=== PATIENT | male | born 2005 | race Native Hawaiian/Other Pacific Islander ===

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

== ENCOUNTER 2024-04-14 16:13 | Emergency (ER) | payer SELFPAY ==
[2024-04-14 16:18] VITALS: BP 129/68; PULSE 66; RESP 18; TEMP 36.6; O2SAT 98; BMI 25.9
--- NOTE | 2024-04-14 16:44 | ED.GENADULT ---
HPI - General Adult General Chief complaint: General Medical Stated complaint: Vomiting 4 days Time Seen by Provider: 04/14/24 18:36 Source: patient Mode of arrival: ambulatory Limitations: no limitations History of Present Illness ED Provider: Gagan Alston HPI narrative: 18 yold male presents to the ED nasal congestion, sore throat, bodychaes, nausea, and vomitting. Patient denies any coughing, chest pain, and shortness of breath. patient states he work at [employer] and most of the kids were sick. Related Data Previous Rx's ?Medication ?Instructions ?Recorded loperamide 2 mg capsule 2 mg PO Q4H PRN loose stool #10 03/26/22 caps ondansetron 4 mg disintegrating 4 mg PO Q6H PRN nausea and 03/26/22 tablet vomiting #10 tabs famotidine 20 mg tablet (Pepcid) 20 mg PO BID 14 days #28 tabs 10/08/22 benzonatate 100 mg capsule 100 mg PO TID PRN cough #20 caps 10/14/22 cephalexin 500 mg capsule 500 mg PO QID 7 days #28 caps 04/09/23 miconazole nitrate 2 % topical 1 appl topical BID #14 grams 04/09/23 cream Allergies Allergy/AdvReac Type Severity Reaction Status Date / Time No Known Allergies Allergy Verified 04/14/24 16:19 [No Known Allergies*] Review of Systems Review of Systems: nasal congestion, sore throat, bodyaches, nausea, vomitting Yes all other systems are reviewed and are negative [facility] Social History Social History Advance Directives: No Advance Directives Information Provided: Yes Physical Exam ED Vital Signs: Vital Signs - 24 hr 04/14/24 16:18 04/14/24 19:06 Temperature 97.9 F 97.9 F Pulse Rate 66 66 Respiratory Rate 18 18 Blood Pressure 129/68 129/68 Pulse Oximetry 98 98 Oxygen Delivery Method Room Air Room Air BMI result Body Mass Index 25.9 Const General: cooperative, healthy appearing, comfortable, no acute distress, well developed, alert, awake and Physically active Orientation/consciousness: patient oriented x3 HENMT Head: Yes normal to inspection, Yes No palpable skull fracture present, Yes normocephalic, Yes atraumatic and No abrasion Ears: hearing grossly normal bilaterally, external ears normal, TM's normal bilaterally, TM normal on the right, TM normal on the left, EAC's normal, mastoids normal and no periauricular adenopathy Throat: Yes posterior oropharynx normal, Yes tonsils normal and Yes uvula midline Eyes General: appearance normal, both eyes and all related structures Neck Neck: Yes normal visual inspection, Yes full ROM, Yes no lymphadenopathy, Yes no meningeal signs, Yes trachea midline, Yes supple, No anterior neck swelling, No bilateral parotid enlargement and No lymphadenopathy Chest Chest palpation & inspection: normal inspection of the chest and normal palpation of entire chest wall Resp Effort & Inspection: normal respiratory effort and able to speak in complete sentences Cardio Jugular venous distension: no JVD Heart sounds: S1 normal heart sound present and S2 normal heart sound present GI Inspection: Yes normal to inspection Palpation (GI): Soft to palpation, not firm, nontender, no guarding and not rigid General: Yes no CVA tenderness Back/Spine/Pelvis Back: no CVA tenderness and No back tenderness Skin General skin exam: no rashes or lesions noted, elasticity normal and turgor normal Neuro General: patient oriented x3, gait normal, tone normal, moves all extremities, Normal light touch and pain sensation, no meningeal signs, no focal motor deficits and CN's II-XI intact bilaterally Extrem General: Yes normal to inspection, Yes full ROM and Yes capillary refill normal Psych Appearance: grossly normal, well kempt and not disheveled Course Course Course Narrative: RME: 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 Patient denies any chest pain or shortness of breath. SARs strep ordered. Medical Decision Making Medical Decision Making [facility] Narrative: 18-year-old male presents to ED for nasal congestion sore throat body aches nausea and vomiting. 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 Patient denies any coughing chest pain or shortness of breath. Patient's COVID influenza RSV strep came back negative. Patient well-appearing. Patient is safe for discharge. Not suspecting pneumonia. No indication for chest x-ray. Patient explained worrisome signs and informed to return to the ED immediately. Differential Diagnosis Differential Diagnoses: The differential diagnosis associated with the presentation includes (RSV, influenza, strep) Admission/Observation Consideration of admission/observation: Escalation of care including admission/observation considered Lab Data [facility] Lab Attestation statement: I reviewed the patient's lab results. Labs: Lab Results 04/14/24 Range/Units 17:37 Influenza Type A (PCR) NEGATIVE (Negative) Influenza Type B (PCR) NEGATIVE (Negative) RSV RNA Qual (PCR) NEGATIVE (Negative) SARS-CoV-2 RNA (RT-PCR) NEGATIVE (Negative) S. pyogenes GrpA [facility] Negative (Negative) Independent Historian Clinical information obtained from an independent historian. History obtained from or confirmed by: Other (patient) Discharge Plan Discharge Clinical Impression: URI (upper respiratory infection) Patient Disposition: Home, Self-Care Instructions: Upper Respiratory Infection (ED), Viral Syndrome (ED) Additional Instructions: You tested negative for COVID, influenza, RSV, and strep. Recommend follow-up with primary care provider. Return to the ED immediately for any chest pain, shortness of breath, coughing, coughing up blood, weakness, abdominal pain, intractable fever, dysuria, hematuria, flank pain, testicular pain, shortness of breath, neck pain, photophobia, headache, or any other concerning symptoms. Prescriptions: No Action ondansetron 4 mg tablet,disintegrating 4 mg PO Q6H PRN (Reason: nausea and vomiting) Qty: 10 0RF loperamide 2 mg capsule 2 mg PO Q4H PRN (Reason: loose stool) Qty: 10 0RF Rx Instructions: administer after each loose stool until symptoms controlled; do not exceed 8 mg per 24 hrs benzonatate 100 mg capsule 100 mg PO TID PRN (Reason: cough) Qty: 20 0RF cephalexin 500 mg capsule 500 mg PO QID 7 Days Qty: 28 0RF miconazole nitrate 2 % cream 1 appl topical BID Qty: 14 0RF famotidine [Pepcid] 20 mg tablet 20 mg PO BID 14 Days Qty: 28 0RF Stand Alone Forms: Work/School Release Interventions: ED Discharge Assessment Last Done: 04/14/24 19:06 Discharge Date/Time: 04/14/24 19:06 Print Language: Sami
[2024-04-14 17:52] LABS: IDNOW Serial# 58CA691E; Strep A Nucleic Acid Negative (Negative)
[2024-04-14 18:23] LABS: Influenza A PCR NEGATIVE (Negative); Influenza B PCR NEGATIVE (Negative); Resp Syncy Virus RNA Qual PCR NEGATIVE (Negative); SARS COV2 PCR INHOUSE NEGATIVE (Negative)
[2024-04-14 19:06] VITALS: BP 129/68; PULSE 66; RESP 18; TEMP 36.6; O2SAT 98
--- OUTSIDE RECORDS SUMMARY | 2024-04-14 19:50 | XMS_ITS | Clinical Summary ---
Author Organization [employer] Address [address] [facility] [address] [place] [address] Care Team Providers Care Compliance Representative Dealer Name Role Phone Chel Rossi EFRA Primary Care Provider [phone] Allergies No known active allergies Medications fluticasone (Flonase) 50 MCG/ACT nasal sprayIndication s:Acute maxillary sinusitis, recurrence not specified Administer 1 spray into each nostril 2 times daily. 16 g 1 4 Active albuterol 108 (90 Base) MCG/ACT inhalerIndicati ons:Difficulty breathing Inhale 2 puffs every 6 (six) hours if needed for wheezing. 18 g 11 4 01/01/20 25 Active busPIRone (Buspar) 5 MG tabletIndicatio ns:Anxiety Take 1 tablet (5 mg) by mouth 2 times daily for 3 days, THEN 2 tablets (10 mg) 2 times daily for 27 days. 115 tablet 4 Active hydrOXYzine HCl (Atarax) 25 MG tabletIndicatio ns:Anxiety TAKE 1 TABLET BY MOUTH EVERY 6 HOURS NEEDED FOR ANXIETY 120 tablet 4 Active Active Problems Problem Noted Date Diagnosed Date Annual physical exam 02/26/2024 Assessment & Plan (02/26/2024 6:28 PM EST): 18 y.o. male here for annual physical examination Reviewed BMI and BP with patient. Nutritional recommendations: Recommended to decrease soda and sugary beverage consumption. Recommended at least 20 g per meal of protein to assist with satiety. Exercise recommendations: Recommended at least 150 min/week of moderate intensity exercise. BH screen done and reviewed Care Gaps reviewed IZ reviewed and discussed w/ patient Updated/reviewed PMH, Surghx, Family Hx & Social Hx Acute maxillary sinusitis 07/07/2023 Assessment & Plan (02/26/2024 6:30 PM EST): Will send trial of nasal steroids, rtc if no improvement. Encounters Date Type Department Care Team Description 04/14/2024 Orders Only GENERIC EXTERNAL DATA DEPARTMENT Provider, Generic External Data 03/04/[address] [address] Chel Rossi NP No Show 03/01/[address] [address] Florencia Cuello MA chartprep 02/02/[address] [address] Chel Rossi NP Anxiety 01/20/2024 11:15 AM EST Telemedicine [address] [phone] Chel Rossi NP Anxiety (Primary Dx); Nasal congestion from Last 3 Months Immunizations Name Administration Dates Next Due DTaP 08/29/2008, 8,02/06/2005,10/23 DTaP, 5 pertussis antigens 2004 HPV 9-Valent 01/01/2016,12/29/2014 Hep A, ped/adol, 2 dose 05/30/2010,07/01/2005 Hep B, Adolescent or Pediatric 06/18/2006,2004,2004 HiB, unspecified 2004 Hib (PRP-T) 2004 IPV 08/29/2008, 5,2004,08/12 Influenza injectable quadriv alent preservative free 03/04/2016 Influenza, Split (incl. luís fied surface antigen) 03/29/2013,01/23/2012,12/26/2011 MMR 08/29/2008,07/01/2005 Meningococcal MCV4P ACYW-135 09/09/2021,01/01/20 16 Pneumococcal Conjugate PCV 13 09/01/2007 ,02/06/2005,2004,08/12 Tdap 01/01/2016 Varicella 08/29/2008,07/01/2005 Social History Tobacco Use Types Packs/Day Years Used Date Smoking Tobacco: Never Passive Smoke Exposure: Never Smokeless Tobacco: Never Tobacco Cessation:Counseling Given: Not Answered Alcohol Use Standard Drinks/Week Comments Never 0 (1 standard drink = 0.6 oz pur e alcohol) Alcohol Answer Date Recorded How often do you have a drink containing alcohol ? 0 01/01/2024 Average Number of Drinks Not on file 024 How often do you have six or more drinks on one occasion? 0 01/01/2024 Depression Answer Date Recorded Patient Health Questionnaire-9 Score 9 01/01/2024 Patient Health Questionnaire-9 Score 9 01/01/2024 Last PHQ-9: Questionnaire Data Not on file 1 03/02/2023 Housing Stability Answer Date Recorded What is your housing situation today? I have carissa carrasco 12/25/[address] you li ve. Do you have problems with any of the following? None of the above 12/25/2023 Food Insecurity Answer Date Recorded Within the past 12 months, y ou worried that your food would run out before you got money to buy more: Never True 12/25/2023 Within the past 12 months,th e food you bought just didn't last and you didn't have enough money to get more: Never True 09/2023 Transportation Answer Date Recorded In the past 12 months, has l ack of transportation kept you from medical appts, meetings, work or from getting things needed for daily living? No 12/25/2023 Utilities Answer Date Recorded In the past 12 months, has t he electric, gas, oil or water company threatened to shut off services in your home? No 12/25/2023 Depression Answer Date Recorded Patient Health Questionnaire-2 Score 1 01/01/2024 Internet Access Answer Date Recorded Internet Access Q1 Yes 12/25/2023 Internet Access Q2 Not on file 12/25/2023 Sex and Gender Information Value Date Recorded Sex Assigned at Male 12/16/2021 10:22 AM EDT Legal Sex Male 10:22 AM EDT Gender Identity Male 12/16/2021 10:22 AM EDT Sexual Orientation Straight 12/16/2021 10 :22 AM EDT Last Filed Vital Signs Vital Sign Reading Time Taken Comments Blood Pressure 125/75 01/01/2024 2:15 PM EST Pulse 92 01/01/2024 2:15 PM EST Temperature 36.8 ??C (98.2 ??F) 01/01/2024 2:15 PM ES T Respiratory Rate 20 01/01/2024 2:15 PM EST Oxygen Saturation 98% 01/01/2024 2:15 PM EST Inhaled Oxygen Concentration - - Weight 82.3 kg (181 lb 6.4 oz) 01/01/2024 2:15 P M EST Height 180.3 cm (5' 11 ) 01/01/2024 2:15 PM EST Body Mass Index 25.3 01/01/2024 2:15 PM EST Plan of Treatment Health Maintenance Due Date Last Done Comments Chlamydia and Gonorrhea Screening 2004 Dental Oral Exam 2004 Dental Prophylaxis 2004 Dental X-Ray: Bitewings 2004 Dental X-Ray: Full Mouth 2004 HIV Screening 2004 Fluoride Varnish 02/02/2005 Pneumococcal Vaccine: Pediatrics (0 to 5 Years) and At-Risk Patients (6 to 49) Years) (1 of 1 - PPSV23) 2010 09/01/2007, 02/06/2005, 2004, Additional history exists Family Planning (PISQ) 06/04/2019 Hepatitis C Screening 2022 COVID-19 Vaccine ( season) 2023 Influenza Vaccine (#1) 2023 7, 03/29/2013, 01/23/2012, Additional history exists Depression Monitoring (PHQ-9) 06/30/2024 01/01/2024, 01/01/2024 SDOH Screening 12/24/2024 12/25/2023 Alcohol/Substance Use Screening 12/31/2024 01/01/2024 Depression Screening 12/31/2024 01/01/2024, 01/01/20 24 Tobacco Screening 12/31/2024 01/01/2024 DTaP/Tdap/Td Vaccines (7 - Td or Tdap) 12/31/2025 01/01/2016, 08/29/2008, 09/01/2007, Additional history exists Zoster Vaccines (1 of 2) 2054 RSV Patients and Patients Aged 60 years or older (1 - 1-dose 75+ series) 06/04/2079 HIB Vaccines Aged Out 2004, 2004 No lo nger eligible based on patient's age to complete this topic Hepatitis B Vaccines Completed 06/18/2006, 2004, 2004 IPV Vaccines Completed 08/29/2008, 01/17, 2004, Additional history exists MMR Vaccines Completed 08/29/2008, 07/01/2005 Varicella Vaccines Completed 08/29/2008, 07/01/2005 Hepatitis A Vaccines Completed 05/30/2010, 07/02/19 06 HPV Vaccines Completed 01/01/2016, 12/29/2014 Meningococcal Vaccine Completed 09/09/2021, 016 RSV under 20 months Aged Out No longe r eligible based on patient's age to complete this topic Rotavirus Vaccines Aged Out No longer eligible based on patient's age to complete this topic Procedures Procedure Name Priority Date/Time Associated Diagnosis Comments SARS COV2/INFLUENZA A/B AND RSV RNA QL NAAT Routine 04/14/2024 5:37 PM EST STREP A NUCLEIC ACID Routine 04/14/2024 5:37 PM EST from Last 3 Months Results * Strep A Nucleic Acid (04/14/2024 5:37 PM EST) IDNOW SERIAL# [id number] [facility] Strep A Nucleic Acid Negative Negative [facility] Comment:All test results mus t be correlated with clinical findings.This test has not been evaluated for monitoring treatment ofinfection.Additional follow-up testing using the culture method isrequired if the result is negative and clinical symptomspersist, or in the event of an acute rheumatic feveroutbreak. 04/14/2024 5:37 PM EST 04/14/2024 5:42 PM EST us Generic External Data Provider LAB MICROBIOLOGY - GENERAL ORDERABLES Final Result [facility] [address] [place] [phone] * SARS-CoV-2 RNA, Influenza A/B, and RSV RNA, Ql NAAT (04/14/2024 5:37 PM EST) Influenza A PCR NEGATIVE Negative [facility] Influenza B PCR NEGATIVE Negative [facility] Resp Syncy Virus RNA Qual PCR NEGATIVE Negative [facility] SARS COV2 PCR NEGATIVE Negative [facility] Comment:All test results mus t be correlated with clinical findings.Negative results do not preclude SARS-CoV2, influenza Avirus, influenza B virus and/or RSV infectionand should not be used as the sole basis for treatment orother patient management decisions. Negative results must becombined with clinical observations, patient history, andepidemiological information.This test has not been evaluated for monitoring treatment ofinfection.This test has been authorized by the FDA under an EmergencyUse Authorization (EUA) for use by authorized laboratories.Testing performed on the [employer] GeneXpert utilizingreal-time RT-PCR.All SARS CoV2 and positive influenza A/B results arereported to [facility]. 04/14/2024 5:37 PM EST 04/14/2024 5:42 PM EST us Generic External Data Provider LAB MICROBIOLOGY - GENERAL ORDERABLES Final Result [facility] [address] [place] [phone] from Last 3 Months [facility] MEDICAID STAND CHILD Care Teams Compliance Representative Dealer Relationship Specialty Start Date End Date Chel Rossi NP [address] [place] [phone] PCP - General Family Medicine 08/18/23
--- OUTSIDE RECORDS SUMMARY | 2024-04-14 19:50 | XMS_ITS | Encounter Summary ---
Author Organization [employer] Address [address] [facility] [address] [place] [address] Care Team Providers Care Metal Bonder Name Role Phone Chel Rossi EFRA Primary Care Provider [phone] Encounter Details Date Type Department Care Team (Late st Contact Info) Description 04/14/2024 Orders Only GENERIC EXTERNAL DATA DEPARTMENT Provider, Generic External Data Social History Tobacco Use Types Packs/Day Years Used Date Smoking Tobacco: Never Passive Smoke Exposure: Never Smokeless Tobacco: Never Alcohol Use Standard Drinks/Week Comments Never 0 [...] Orientation Straight 12/16/2021 10 :22 AM EDT documented as of this encounter Plan of Treatment Not on file documented as of this encounter Procedures Procedure Name Priority Date/Time Associated Diagnosis Comments STREP A NUCLEIC ACID Routine 04/14/2024 5:37 PM EST SARS COV2/INFLUENZA A/B AND RSV RNA QL NAAT Routine 04/14/2024 5:37 PM EST documented in this encounter Results * SARS-CoV-2 RNA, Influenza A/B, and RSV RNA, Ql NAAT (04/14/2024 5:37 PM EST) Influenza A PCR NEGATIVE Negative [facility] Influenza B PCR NEGATIVE Negative [facility] Resp Syncy Virus RNA Qual PCR NEGATIVE Negative [facility] SARS COV2 PCR NEGATIVE Negative [facility] Comment:All test results mus t be [...] use by authorized laboratories.Testing performed on the [employer] GeneXpert utilizingreal-time RT-PCR.All SARS CoV2 and positive influenza A/B results arereported to [facility]. 04/14/2024 5:37 PM EST 04/14/2024 5:42 PM EST us Generic External Data Provider LAB MICROBIOLOGY - GENERAL ORDERABLES Final Result Performing Organization Address [facility] de Phone Number [facility] [address] [place] [phone] * Strep A Nucleic Acid (04/14/2024 5:37 PM EST) IDNOW SERIAL# [id number] [facility] Strep A Nucleic Acid Negative Negative [facility] Comment:All test results mus t be correlated with clinical findings.This test has not been evaluated for monitoring treatment ofinfection.Additional follow-up testing using the culture method isrequired if the result is negative and clinical symptomspersist, or in the event of an acute rheumatic feveroutbreak. 04/14/2024 5:37 PM EST 04/14/2024 5:42 PM EST Generic External Data Provider LAB MICROBIOLOGY - GENERAL ORDERABLES Final Result Performing Organization Address [facility] de Phone Number [facility] [address] [place] [phone] documented in this encounter Visit Diagnoses Not on filedocumented in this encounter Additional Health Concerns Assessment Noted Time PHQ-9 Depression Total Score: 9 01/01/20 24 3:27 PM EST documented as of this encounter Care Teams Metal Bonder Relationship Specialty Start Date End Date Chel Rossi NP [address] [place] [phone] PCP - General Family Medicine 08/18/23 documented as of this encounter
--- OUTSIDE RECORDS SUMMARY | 2024-04-14 19:50 | XMS_ITS | Encounter Summary ---
Author Organization [employer] Address [address] [facility] [address] [place] [address] Care Team Providers Care Director Of People Name Role Phone Suzanna Breaux MD Primary Care Provider [phone] Rere WinnP Primary Care Provider [phone] Rossi NP Primary Care Provider [phone] Encounter Details Date Type Department Care Team (Late st Contact Info) Description 03/07/2022 Abstract [facility] [address] [place] [address] Kevin Worrell DMD Social History Tobacco Use Types Packs/Day Years Used Date Smoking Tobacco: Never Assessed Sex and Gender Information Value Date Recorded Sex Assigned at Male 12/16/2021 10:22 AM EDT Legal Sex Male 10:22 AM EDT Gender Identity Male 12/16/2021 10:22 AM EDT Sexual Orientation Straight 12/16/2021 10 :22 AM EDT documented as of this encounter Plan of Treatment Not on file documented as of this encounter Procedures Procedure Name Priority Date/Time Associated Diagnosis Comments 31 O SEALANT - PER TOOTH Routine 023 12:00 AM EST 19 O SEALANT - PER TOOTH Routine 023 12:00 AM EST 18 O SEALANT - PER TOOTH Routine 023 12:00 AM EST 15 O SEALANT - PER TOOTH Routine 023 12:00 AM EST 30 O SEALANT - PER TOOTH Routine 023 12:00 AM EST 3 O SEALANT - PER TOOTH Routine 03/07/19 23 12:00 AM EST 14 O SEALANT - PER TOOTH Routine 023 12:00 AM EST 32 EXTRACTION Routine 03/07/2022 12:00 AM EST 1 EXTRACTION Routine 03/07/2022 12:00 AM EST 17 EXTRACTION Routine 03/07/2022 12:00 AM EST 16 EXTRACTION Routine 03/07/2022 12:00 AM EST S9m EXTRACTION Routine 03/07/2022 12:00 AM EST documented in this encounter Visit Diagnoses Not on filedocumented in this encounter Care Teams Director Of People Relationship Specialty Start Date End Date Suzanna Breaux MD [address] [place] [address] PCP - General Pediatrics 11/10/14 10/14/22 Rere Winn FNP [address] [place] [address] PCP - General Family Medicine 10/15/22 08/17/23 Chel Rossi NP [address] [place] [address] PCP - General Family Medicine 08/18/23 documented as of this encounter
== END 2024-04-14 19:06 | disposition home or self-care (01) ==
PROVIDERS: Physician Assistant; Emergency Provider Emergency Medicine; PCP Nurse Practitioner
DX: J06.9 Acute upper respiratory infection, unspecified (principal); J02.9 Acute pharyngitis, unspecified; Z03.818 Encounter for observation for suspected exposure to other biological agents ruled out
CPT/HCPCS: 0241U; 87651; 99282; 99283